=== PATIENT | female | born 1975 | race Two or more races ===

== ENCOUNTER 2019-01-02 18:11 | Emergency (ER) | payer MEDICAID ==
[~2019-01-02] VITALS: Ht 160 cm; Wt 91.6 kg
[2019-01-02 18:18] VITALS: BP 133/74
--- NOTE | 2019-01-02 18:28 | NUR ---
PT PRESENTED TO THE ER WITH A C/O RT ANKLE/FOOT PAIN S/P FALL. PT AMBULATED TO ER #16 WITH A LIMP. PT HAS MINIMAL EDEMA ON RT FOOT/ANKLE. B GLADYS ARAMBULA IS AT THE BEDSIDE.
--- NOTE | 2019-01-02 18:36 | NUR ---
XRAY IN PROGRESS AT THE BEDSIDE.
== END 2019-01-02 19:21 | disposition home or self-care (01) ==
LOC: ER 18:11
DX: S93.491A Sprain of other ligament of right ankle, initial encounter (principal); W18.39XA Other fall on same level, initial encounter; Y93.01 Activity, walking, marching and hiking; Y92.89 Other specified places as the place of occurrence of the external cause; Y99.8 Other external cause status
CPT/HCPCS: 73610-TC